=== PATIENT | female | born 1940 | race Caucasian/White ===

== ENCOUNTER 2022-11-03 12:49 | Outpatient (REF) | payer MEDICARE, SELFPAY ==
[2022-11-03 14:18] LABS: Anion Gap 12 (12-20); Blood Urea Nitrogen 25 mg/dL (9-16); Calcium 10.1 mg/dL (8.4-10.2); Carbon Dioxide 24 mmol/L (22-29); Chloride 108 mmol/L (96-108); Estimated Glomerular Filt Rate > 60; Glucose Random 208 mg/dL (60-115); Potassium 4.5 mmol/L (3.3-5.1); Sodium 139 mmol/L (135-145)
[2022-11-03 14:47] LABS: T4 Thyroxine 8.2 ug/dL (4.5-12.0); Thyroid Stimulating Hormone 2.22 uIU/mL (0.32-4.0); Vitamin B12 851 pg/mL (200-900)
[2022-11-10 16:08] LABS: Vitamin D 25-OH, D2 <4 ng/mL; Vitamin D 25-OH, D3 36 ng/mL; Vitamin D 25-OH, Total 36 ng/mL (30-100)
== END 2022-11-03 12:50 | disposition home or self-care (01) ==
LOC: HO.LAB 12:49
PROVIDERS: PCP Internal Medicine; Visit Provider Psychiatry & Neurology Neurology
DX: G31.84 Mild cognitive impairment of uncertain or unknown etiology (principal); E55.9 Vitamin D deficiency, unspecified
CPT/HCPCS: 36415; 80048; 82306; 82607; 82746; 84436; 84443

== ENCOUNTER 2025-03-07 13:25 | Outpatient (AMB) | payer MEDICARE, SELFPAY ==
--- OUTSIDE RECORDS SUMMARY | 2024-05-03 06:15 | XMS_ITS ---
Author Organization [facility] Address [address] [place] [address] Care Team Providers Care Structural Drafter Name Role Phone Shayla MEADOWS, Joaquin Mcclure Primary Care Provider Unav ailable Angle Del Angel Unavailable [phone] Encounters Encounter Location Date Provider Diagnosis [address] [phone] 05/03/2024 Angle Del Angel Plan Of Treatment Next Appt Details Provider Name:Angle Drake adams, 06/02/2025 11:15:00 AM, [address] [place] [address], [phone], Progress Notes * Kylee MONTIEL ADOB:[birth year] (84 yo F)Acc No.[id number]:05/03/2024 Progress Note Patient: Kylee HERNÁNDEZ Provider: Carrie Del Anegl DPM :1940 A ge:83 Y S ex:Female Date:05/03/2024 Address:[address] [place] [phone] Pcp:Joaquin Mcguire MD Subjective: * Chief Complaints: * * Medical History: Objective: * Vitals: Assessment: Plan: * Treatment: * Images: * The named appointment provid er may or may not be the originator of this progress note, and it is not deemed complete until electronically signed by the appointment provider. Sign off status: Pending * Provider: Carrie Del Angel DPM Date: 1 07/04/2023 Generated for Micah Gomes/Joaquin on: 04:15 PM EDT
--- OUTSIDE RECORDS SUMMARY | 2024-12-27 10:45 | XMS_ITS ---
Author Organization [facility] Address [address] [place] [address] Care Team Providers Care Pourer Crane Ladle Name Role Phone Shayla MEADOWS, Joaquin Mcclure Primary Care Provider Unav ailable Angle Del Angel Unavailable [phone] Encounters Encounter Location Date Provider Diagnosis [address] [address] 12/27/2024 Angle Del Angel Plan Of Treatment Next Appt Details Provider Name:Angle Drake adams, 06/02/2025 11:15:00 AM, [address] [place] [address], [phone], Progress Notes * Kylee MONTIEL ADOB:[birth year] (84 yo F)Acc No.[id number]:12/27/2024 Progress Note Patient: Kylee HERNÁNDEZ Provider: Carrie Del Angel DPM :1940 A ge:84 Y S ex:Female Date:12/27/2024 Address:[address] [place] [phone] Pcp:Joaquin Mcguire MD Subjective: * Chief Complaints: * * Medical History: Objective: * Vitals: Assessment: Plan: * Treatment: * Images: * The named appointment provid er may or may not be the originator of this progress note, and it is not deemed complete until electronically signed by the appointment provider. Sign off status: Pending * Provider: Carrie Del Angel DPM Date: 0 12/27/2024 Generated for Micah Gomes/Joaquin on: 1 04:15 PM EDT
--- OUTSIDE RECORDS SUMMARY | 2025-02-17 09:15 | XMS_ITS ---
Author Organization [facility] Address [address] [place] [address] Care Team Providers Care Business Development Coordinator Name Role Phone Shayla MEADOWS, Joaquin Mcclure Primary Care Provider Unav ailable Angle Del Angel Unavailable [phone] Encounters Encounter Location Date Provider Diagnosis [address] [address] 02/17/2025 Angle Del Agnel Plan Of Treatment Next Appt Details Provider Name:Angle Drake adams, 06/02/2025 11:15:00 AM, [address] [place] [address], [phone], Progress Notes * Kylee MONTIEL ADOB:[birth year] (84 yo F)Acc No.[id number]:02/17/2025 Progress Note Patient: Kylee HERNÁNDEZ Provider: Carrie Del Angel DPM :1940 A ge:84 Y S ex:Female Date:02/17/2025 Address:[address] [place] [phone] Pcp:Joaquin Mcguire MD Subjective: * Chief Complaints: * * Medical History: Objective: * Vitals: Assessment: Plan: * Treatment: * Images: * The named appointment provid er may or may not be the originator of this progress note, and it is not deemed complete until electronically signed by the appointment provider. Sign off status: Pending * Provider: Carrie Del Angel DPM Date: 0 02/17/2025 Generated for Micah galindo/Sherman/Joaquin on: 04:16 PM EDT
--- OUTSIDE RECORDS SUMMARY | 2025-03-03 09:30 | XMS_ITS ---
[facility] Address [address] [place] [address] Care Team Providers Care Environmental Compliance Manager Name Role Phone Shayla MEADOWS, Joaquin Mcclure Primary Care Provider Unav ailable Angle Del Angel Unavailable [phone] Allergies No Known Allergies REASON FOR VISIT At Risk Footcare Medications Medication SIG (Take, Route, Frequency, Duration) Notes Start Date End Date Status Omeprazole 20 mg Not -Taking Cilostazol 100 MG Orally No t-Taking Ranitidine Not-Takin g Aleve prn Not-Taking Vitamin D Active Januvia Not-Taking Econazole Nitrate 1 % 1 application to affected area Externally Once a day; Duration: 30 days PRN 05/30/2016 Not-Taking Loprox 0.77 % 1 application to affected area Externally Twice a day PRN Not-Takin g Sertraline HCl 50 MG 1 tablet Orally Onc e a day Not-Taking Lisinopril 2.5 mg Ac tive Aspirin 81 MG 1 tablet Orally Once a day; Duration: 30 day(s) Active Atorvastatin Calcium 20 MG 1 tablet Orally Once a day Active Alendronate Sodium 70 mg once a week Active Voltaren 1 % as directed Externally Active Social History Tobacco Use: Social History Observation Description Date Details (start date - stop date) Never Smoker NA - NA Tobacco use other than smoking: Question Answer Notes Are you an other tobacco user? No Tobacco Control (Standard) Question Answer Notes Tobacco use: Nonsmoker Additional Findings: Tobacco non-user Current no nsmoker AUDIT-C (Standard) Question Answer Notes Did you have a drink containing alcohol in the p ast year? No Points 0 Interpretation Negative Vital Signs Height 4 ft 11 in in 03/03/2025 Weight 140 lbs 03/03/2025 BMI 28.27 kg/m2 03/03/2025 Procedures Procedure Date Ordered Date Performed Result Body Sit e 43324-OOJAGCN NAIL, 6 OR MORE 03/03/2025 N/A 95277-LLBZ SKIN LESIONS, 2 TO 4 03/03/2025 N/A Encounters Encounter Location Date Provider Diagnosis [facility] [address] [place] [phone] 03/03/2025 Angle Del Angel Type 2 diabetes mellitus with diabetic polyneuropathy E11.42 and Tinea unguium B35.1 Assessments Encounter Date Diagnosis (ICD Code) Assessment Notes Treatment Notes Treatment Clinical Notes Section Notes 03/03/2025 Type 2 diabetes mellitus with diabetic polyneuropathy (ICD-10 - E11.42) 03/03/2025 Tinea unguium (ICD-10 - B35.1) Plan Of Treatment Pending Test Test Name Order Date 99530-[id number] NAIL, 6 OR MORE 03/03/2025 08560-UBFX SKIN LESIONS, 2 TO 4 03/03/20 25 Next Appt Details Follow Up: 3 Months, Reason: Provider Name:Angle adams, 06/02/2025 11:15:00 AM, [address] [place] [address], [place], [phone], Procedure Notes * Category Sub-Category Detail Notes Debride Nail 6-10 Nail debridement Due to the cl inical pathology outlined in the exam findings, performance of this nail treatment is medically necessary as its management by an unskilled/untrained nonprofessional would put this patients foot and overall health at risk. Therefore, debridement to affected nail(s), as described in exam ( TA, T1, T2, T3, T4, T5, T6, T7, T8, T9, ), was performed exclusively by the physician of record to reduce/remove overall nail length, girth, thickness, subungual debris, and necrotic tissue, by manual and/or electrical means through the use of a nail nipper and/or dremel-type jig grinder, to a more viable healthy nail plate or bed tissue 6-10 nails in total. Silver nitrate was used for any petechial bleeding as necessary. Definitive antifungal treatment options, both pharmaceutical and surgical, have been reviewed and discussed with the patient. The patient solely prefers the use of intermittent/as needed professional debridement services for their nail condition and understands the need for additional periodic treatments to maintain effectiveness in symptomatic relief - 13622 Keratoma Treatment Parring or Cutting o f Benign Hyperkeratotic Lesion(s) (-56) 2-4 Lesions - Due to the at risk nature of the patients medical condition as documented in the exam findings, performance of this keratoderma treatment is medically necessary as its management by an unskilled/untrained nonprofessional would put this patients foot and overall health at risk. Therefore, the benign hyperkeratotic lesions, (2) in total, locations as stated and described in the exam ( plantar heels B/L), were pared, and/or cut utilizing a sterile 15 blade, tissue nippers, and/or power dremel instrumentation by the physician of record - 97924 Progress Notes * Kylee MONTIEL ADOB:[birth year] (84 yo F)Acc No.[id number]:03/03/2025 Progress Note Patient: Kylee HERNÁNDEZ Provider: Carrie Del Angel DPM :1940 A ge:84 Y S ex:Female Date:03/03/2025 Address:[address] [place], [place] [phone] Pcp:Joaquin Mcguire MD Subjective: * Chief Complaints: * A t Risk Footcare * HPI: A t Risk footcare: Pt States Last PCP Visit: D ate 0 11/17/2024 * ROS: G eneral/Constitutional: Nausea d enies. V omiting d enies. H joselin Thirst d enies. L oss appetite d enies. C hills d enies. F atigue d enies.?Fever d enies. N ight Sweats d enies. U nexplained weight loss d enies. O phthalmologic: Blurred vision d enies. R ed eye d enies. ? H EENTM: Dentures d enies. D izziness a dmits. G lasses/contacts a dmits. R etinopathy d enies. B lurred/double vision d enies. T MJ?denies. D ischarge/drainage d enies. I mplants d enies. H briana of hearing denies. D ifficulty chewing/swallowing/speaking d enies. N ose bleeds a dmits.?Sore mouth d enies. S wollen glands d enies. R espiratory: On Oxygen d enies. P neumonia/pleurisy d enies.?Bronchitis d enies. E mphysema d enies. C oughing d enies. C ough blood?denies. S hortness of breath d enies. W heezing d enies. C ardiovascular: Pacemaker d enies. M HEAD PACKAGER d enies. W PW d enies. C HF d enies. H eart attack d enies. S eptal defect d enies. R apid beat d enies. C hest pain d enies. A trial Fib. d enies. M urmur/Palpitations d enies. G astrointestinal: Hemorrhoids d enies. S tomach/Abdominal pain d enies. D ark blood stool d enies. I rritable bowel d enies. C onstipation d enies. D iarrhea d enies. V omiting d enies. H ematology: Swelling d enies. B ruising d enies. B leeding problem d enies. G enitourinary: Blood urine d enies. F requent/Painfu/urination/bladder control d enies. K idney stones d enies. I nfection (UTI) d enies. N ephropathy d enies. M usculoskeletal: Hammertoes d enies. B unions d enies. S coliosis/kyphosis d enies. M uscle cramps / walking d enies. G eneralized aches and pains?denies. W eakness d enies. I nteg.: Collado d enies. S cars d enies. C orns/calluses?denies. I ngrown nails d enies. P ainful nails d enies. R ashes d enies. N eurologic: Difficulty sleeping d enies. B ipolar d enies. B rain disorder d enies. B alance trouble d enies. C onfusion d enies. F ainting/blackouts d enies. H eadache d enies. T remors d enies. * Medical History: * Surgical History: a ppendectomy 1949breast surgery 2003hysterectomy 1970 * Hospitalization/Major Diagno stic Procedure: s igmoidoscopy 06/2013[facility] High blood pressure 03/2019fell, fractured clavicle and 2 ribs 12/2023 * Family History: M other: , poor circulation, diagnosed with Unspecified cerebral artery occlusion with cerebral infarction, Unspecified essential hypertension. F ather: . D aughter(s): alive. S on(s): alive. S pouse: . 2 son(s) , 2 daughter(s) . . * Social History: T obacco Use: T obacco use other than smoking A re you an other tobacco user? N o Tobacco Control (Standard) T obacco use: N onsmoker A dditional Findings: Tobacco non-user C urrent nonsmoker D rugs/Alcohol: D rugs H ave you used drugs other than those for medical reasons in the past 12 months? N o M iscellaneous: C affeine: yes, 1-2 cups per day. Children: yes, 4. Exercise: no. Marital status: . Occupation: retired. D rug/Alcohol: A GARY-C (Standard) D id you have a drink containing alcohol in the past year? N o P oints 0 I nterpretation N egative * Medications: T akingVoltaren 1 % Gel as directed Externally Alendronate Sodium 70 mg once a week Atorvastatin Calcium 20 MG Tablet 1 tablet Orally Once a day Aspirin 81 MG Tablet Chewable 1 tablet Orally Once a day Lisinopril 2.5 mg Vitamin D Taking Voltaren 1 % Gel as directed Externally Taking Alendronate Sodium 70 mg once a week Taking Atorvastatin Calcium 20 MG Tablet 1 tablet Orally Once a day Taking Aspirin 81 MG Tablet Chewable 1 tablet Orally Once a day Taking Lisinopril 2.5 mg Taking Vitamin D Not-Taking/PRNEconazole Nitrate 1 % Cream 1 application to affected area Externally Once a day , Notes to Pharmacist: PRNJanuvia Sertraline HCl 50 MG Tablet 1 tablet Orally Once a day Loprox 0.77 % Gel 1 application to affected area Externally Twice a day , Notes to Pharmacist: John , Notes to Pharmacist: prnRanitidine Cilostazol 100 MG Tablet Orally Omeprazole 20 mg Medication List reviewed and reconciled with the patientNot-Taking/PRN Econazole Nitrate 1 % Cream 1 application to affected area Externally Once a day , Notes to Pharmacist: PRNNot-Taking/PRN Januvia Not- Taking/PRN Sertraline HCl 50 MG Tablet 1 tablet Orally Once a day Not-Taking/PRN Loprox 0.77 % Gel 1 application to affected area Externally Twice a day , Notes to Pharmacist: PRNNot-Taking/PRN Aleve , Notes to Pharmacist: prnNot-Taking/PRN Ranitidine Not-Taking/PRN Cilostazol 100 MG Tablet Orally Not-Taking/PRN Omeprazole 20 mg Medication List reviewed and reconciled with the patient * Allergies: N .K.D.A.yes[Allergies Verified] Objective: * Vitals: H t: 4 ft 11 in, Wt: 140, BMI: 28.27, Shoe size: 7, BS: did not test, Wt-k.5 kg. * P ast Orders: L ab:HEMOGLOBIN A1C (GLYCOHEMOGLOBIN) (Order Date - 10/03/2024) (Collection Date & Time - 10/04/2024 01:38 PM) Value Reference Range HEMOGLOBIN A1C % (HH) 7.1 * Examination: O phthalmology Referral: DIABETES EYE EXAM P rocedure Performed: N o N eurological: SENSORY: Neurological exam demonstrates, reduced light touch sensation, reduced sharp/dull pin prick discrimination , B/L, 5.07 monofilament test performed at plantar aspects of 5 varied sites per foot shows sensation, reduced , B/L. N ails: NAILS are: E longated, overgrown, dystrophic, lytic, greater than 3mm thick, discolored and friable with crumbly malodorous subungual debris, with dull to no pain on palpation due to neuropathy, TA, T1, T2, T3, T4, T5, T6, T7, T8, T9. D ermatologic: SKIN FINDINGS: S kin exam reveals Keratotic lesion(s) located at plantar heels B/L. V ascular: DP PULSES (B): 1 /4, B/L. PT PULSES (B): 0 /4, B/L. CAPILLARY FILL TIME: 3 secs. per digit, b/l. EDEMA (C): 1 /4, B/L, Feet, Ankle(s), Leg(s). CLAUDICATION (C): n egative, b/l . REST PAIN: n egative. CLUBBING: a bsent. O rthopedic: MUSCLE STRENGTH: 5 /5 all groups in a symmetrical fashion, B/L. G eneral Examination: GENERAL APPEARANCE: R ashleys a pleasant, alert, well nourished, well-developed, well hydrated individual, who demonstrates proper attention to hygiene/body habitus, and is in no acute distress, Pt serves as own historian for office visit today. ORIENTED: p erson, place, and time. Assessment: * Assessment: 1. T ype 2 diabetes mellitus with diabetic polyneuropathy - E11.42 (Primary) 2 . T inea unguium - B35.1 Plan: * Treatment: * Procedures: D ebride Nail 6-10: Nail debridement D ue to the clinical pathology outlined in the exam findings, performance of this nail treatment is medically necessary as its management by an unskilled/untrained nonprofessional would put this patients foot and overall health at risk. Therefore, debridement to affected nail(s), as described in exam ( TA, T1, T2, T3, T4, T5, T6, T7, T8, T9, ), was performed exclusively by the physician of record to reduce/remove overall nail length, girth, thickness, subungual debris, and necrotic tissue, by manual and/or electrical means through the use of a nail nipper and/or dremel- type jig grinder, to a more viable healthy nail plate or bed tissue 6-10 nails in total. Silver nitrate was used for any petechial bleeding as necessary. Definitive antifungal treatment options, both pharmaceutical and surgical, have been reviewed and discussed with the patient. The patient solely prefers the use of intermittent/as needed professional debridement services for their nail condition and understands the need for additional periodic treatments to maintain effectiveness in symptomatic relief - 61022. K eratoma Treatment: Parring or Cutting of Benign Hyperkeratotic Lesion(s) ( -56) 2-4 Lesions - Due to the at risk nature of the patients medical condition as documented in the exam findings, performance of this keratoderma treatment is medically necessary as its management by an unskilled/untrained nonprofessional would put this patients foot and overall health at risk. Therefore, the benign hyperkeratotic lesions, (2) in total, locations as stated and described in the exam ( plantar heels B/L), were pared, and/or cut utilizing a sterile 15 blade, tissue nippers, and/or power dremel instrumentation by the physician of record - 47159. * Procedure Codes: 1 1721 DEBRIDE NAIL, 6 OR MORE, Modifiers: XS 20046 TRIM SKIN LESIONS, 2 TO 4, Modifiers: XS * Follow Up: 3 Months * Images: * Sign off status: Completed true * Provider: Carrie Del Angel DPM Date: Generated for Micah galindo/Sherman/Joaquin on: 04:15 PM EDT History and Physical Notes * HPI (History of Present Illness) Category Sub-Category Detail Notes Category Not es At Risk footcare Pt States Last PCP Visit: Date: Examination Category Sub-Category Detail Notes Category Not es Neurological SENSORY: Neurological exa m demonstrates, reduced light touch sensation, reduced sharp/dull pin prick discrimination , B/L, 5.07 monofilament test performed at plantar aspects of 5 varied sites per foot shows sensation, reduced , B/L Dermatologic SKIN FINDINGS: Skin exam reveal s Keratotic lesion(s) located at plantar heels B/L Orthopedic MUSCLE STRENGTH: 5/5 all groups in a symmetrical fashion, B/L General Examination GENERAL APPEARANCE: Reveals a pleasant, alert, well nourished, well-developed, well hydrated individual, who demonstrates proper attention to hygiene/body habitus, and is in no acute distress, Pt serves as own historian for office visit today ORIENTED: person, place, and t keyon Ophthalmology Referral DIABETES EYE EXAM Procedure Perform ed:: No Vascular DP PULSES (B): 1/4, B/L PT PULSES (B): 0/4, B/L CAPILLARY FILL TIME: 3 secs. per digit, b/l EDEMA (C): 1/4, B/L, Feet, Ankl e(s), Leg(s) CLUBBING: absent CLAUDICATION (C): negative, b/l REST PAIN: negative Nails NAILS are: Elongated, overg rown, dystrophic, lytic, greater than 3mm thick, discolored and friable with crumbly malodorous subungual debris, with dull to no pain on palpation due to neuropathy, TA, T1, T2, T3, T4, T5, T6, T7, T8, T9
--- NOTE | 2025-03-07 13:27 | MHC.OFFVIS ---
Intake Visit Reasons: 6 mo fu Accompanied by: Daughter Allergies No Known Allergies Allergy (Verified 03/07/25 13:31) Medication List - Last Reconciled 03/07/25 by Sonia Ann CNP atorvastatin 40 mg PO DAILY cholecalciferol (vitamin D3) 25 mcg PO DAILY donepezil 10 mg PO BEDTIME lisinopril 10 mg PO DAILY metformin ER 500 mg PO BID pantoprazole 40 mg PO BID HPI Comments Details: Short term memory declining some, more forgetful. Sometimes forgets if she ate or if she took medications. Has medications in pill box. Living with her son. She was still doing some cooking, cleaning, and still managing her own finances without issues. No falls. Sleep was not so good, has trouble falling asleep. Mood was okay.? Lost her balance trying to hang up towel and fell at the end of 12/2023, fx clavicle. Was hospitalized for few days and discharged to rehab. She has had memory problems starting in 2020 with short-term memory problems, difficulty recalling names, and words searching. She has an 11th grade education. 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 She has 4 children, Kala, Missy, José Miguel, and Art. She has 6 grandchildren and 3 great-grandchildren. [facility] Medical History (Updated 03/07/25 @ 13:32 by Sonia Ann CNP) Depression Osteopenia Hyperlipidemia Diabetes Hypertension Review of Systems Const Denies chills, Denies daytime sleepiness, Denies difficulty sleeping, Denies fatigue, Denies fever(s), Denies frequent falls, Denies headache(s), Denies increased appetite, Denies poor appetite, Denies snoring, Denies weakness, Denies weight gain and Denies weight loss Eyes Denies loss of vision ENT Denies vertigo, Denies dizziness, Denies headache(s) and Reports neck pain Card Denies chest pain at rest, Denies chest pain with activity, Denies syncope, Denies leg edema, Denies palpitations, Denies dyspnea and Denies dyspnea on exertion Resp Denies cough, Denies dyspnea, Denies dyspnea on exertion and Denies snoring GI Denies abdominal pain, Denies constipation, Denies heartburn, Denies diarrhea and Denies nausea Denies urinary frequency, Denies urinary incontinence and Denies urinary urgency Musc Denies abnormal gait, Denies back pain, Denies myalgias, Reports arthralgias, Reports neck pain, Denies numbness and Denies tingling Neuro Denies abnormal gait, Denies vertigo, Denies dizziness, Denies syncope, Denies frequent falls, Denies headache(s), Denies lack of coordination, Denies loss of vision, Reports memory loss, Denies numbness, Denies Other visual disturbances, Denies restless legs, Denies seizure-like activity, Denies tingling, Denies paresthesias, Denies tremor(s) and Denies weakness Psych Denies anxiety, Denies depression, Denies auditory hallucinations, Reports memory loss and Denies visual hallucinations Endo Denies fatigue and Denies palpitations Physical Exam Const Other: General Appearance:? normal, in no acute distress. Heart:? S1, S2 normal, no murmurs. Lungs:? clear anteriorly and posteriorly. Musculoskeletal:? normal. Extremities:? no edema. Psych:? alert, as below. Neuro Other: Abnormal Neurological Findings:?MMSE 25/30.? Mental Status: alert, as below. Cranial Nerves: Pupils are equal, round, and reactive to light. External ocular muscles are intact. Visual shane are full, no ptosis. Face is symmetrical, no facial weakness or droop. Facial sensations are normal. Tongue protrudes in midline. Palate elevates symmetrically. Shoulder shrugging is normal Motor Examination: Normal muscle tone, bulk and strength. No atrophy or fasciculations. No drift of the extended upper extremities. DTR 2+. Plantars are flexor. Sensory Exam: Normal light touch, temperature, pinprick, vibration, and joint-position sensations. Rhomberg sign is absent. Coordination: No ataxia. No titubation. Gait Exam: Within normal limits. Cerebellar Signs: [id number] is okay. Extrapyramidal System: No tremor, rigidity with normal facial expressions. No bradykinesia. No bradyphrenia. Normal arm swing and posture. No propulsion or retropulsion. Speech: Normal. MMSE Level of Consciousness: Alert. Orientation: Knows correct year, month, date (with some difficulty), day and season. Knows correct city (with some difficulty), county and state. Knows correct location and floor. Registration: Able to register 3 objects. Attention: Serial 7's performed accurately to 86. Recall: Able to recall 2 out of 3 objects. Language: Normal spontaneous speech, fluency, repetition, naming, comprehension, reading, and writing. Total Score: 25/30. Results Reviewed Results Reviewed: 11/11/22 EEG- WNL labs normal Assessment & Plan Assessment & Plan (1) MCI (mild cognitive impairment): Code(s): G31.84 - Mild cognitive impairment of uncertain or unknown etiology Category: Medical Plan: Continue donepezil 10mg 1 tablet at bedtime. Start memantine 5mg 1 tablet twice a day, use/side effects reviewed. Stay physically and socially active. Medications: New memantine (Namenda) 5 mg PO BID 60 tabs 2RF 30 days donepezil 10 mg PO BEDTIME 90 tabs 1RF 90 days Coding Level of Care Code Est Pt Level 4 (87755) Diagnoses MCI (mild cognitive impairment) G31.84
--- OUTSIDE RECORDS SUMMARY | 2025-03-07 16:15 | XMS_ITS | Clinical Summary ---
Author Organization [facility] Address [address] [place] [address] Phone Care Team Providers Care Desktop Publishing Operator Name Role Phone Joaquin Mcguire MD Primary Care Provider [phone] Allergies No known active allergies Medications alendronate (FOSAMAX) 70 mg tablet Take 1 tablet (70 mg total) by mouth every 7 (seven) days. Active triamcinolone (KENALOG) 0.1 % cream Bi affected area Active DICLOFENAC SODIUM TOP Diclofenac Sodium 1 % Gel--- APPLY 4 G TO EACH AFFECTED AREA UP TO 4 TIMES DAILY. MAX 16GRAM/DAY PER JOIN. MAX 32 GRAMS/DAY/BODY Active lancets lancets Use once daily to check blood sugar Active nystatin-triamci nolone (MYCOLOG II) cream Apply topically 2 (two) times a day. Active blood-glucose meter misc use qd as directed - Does not apply Active aspirin 81 mg EC tablet Take 1 tablet (81 mg total) by mouth 1 (one) time each day. Active metFORMIN XR (GLUCOPHAGE-XR) 500 mg 24 hr tablet Take 1 tablet (500 mg total) by mouth 2 (two) times a day. Take one tablet by mouth twice a day with meals. 180 each 3 4 03/26/20 25 Active pantoprazole (PROTONIX) 40 mg EC tablet Take 1 tablet (40 mg total) by mouth 2 (two) times a day. 180 each 3 4 03/26/20 25 Active cholecalciferol (VITAMIN D-3) 25 mcg (1,000 unit) tablet TAKE 1 TABLET BY MOUTH EVERY DAY 90 tablet 1 5 Active lisinopriL (PRINIVIL,ZESTRI L) 10 mg tablet TAKE 1 TABLET BY MOUTH EVERY DAY 90 tablet 1 5 Active OneTouch Ultra Test test strip CHECK BLOOD SUGAR ONCE A DAY 100 strip 1 5 Active atorvastatin (LIPITOR) 40 mg tabletIndication s:Encounter for immunization,Pur e hypercholesterol emia, unspecified TAKE 1 TABLET BY MOUTH EVERY DAY 90 tablet 1 5 Active Active Problems Problem Noted Date Diagnosed Date Pure hypercholesterolemia 03/03/2024 Breast cancer ([facility] V24, 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 V24, [facility] V28) 03/03/2024 Assessment & Plan (07/04/2024 12:25 PM EST): Her diabetes is well-controlled based on last hemoglobin A1c. She is getting some fasting blood sugars in the 160-190 territory. Will recheck hemoglobin A1c. Patient has not had any episodes of hypoglycemia. For now she will continue on the Januvia as well as the metformin. Orders: Hemoglobin A1c; Future Comprehensive metabolic panel; Future Type II or unspecified type diabetes mellitus with ophthalmic manifestations, not stated as uncontrolled(250.50) ([facility] V24, 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 V28) (Primary Dx); Microalbuminuria; Pure hypercholesterolemia; Type II or unspecified type diabetes mellitus with ophthalmic manifestations, not stated as uncontrolled(250.50) ([facility] V24, [facility] V28); Memory deficit; Patient has healthcare proxy from Last 3 Months Immunizations Immunization Administration Dates Next Due Influenza Quadravalent, 0.5m l (Fluzone High-dose) 65yo and older 03/08/2019 Influenza trivalent, 0.5mL ( Fluzone High-dose) 65yo and older 02/03/2023,02/06/2022,03/01/2021,03/08,03/17/2018,03/01/2017 Influenza trivalent, with pr eservative (Fluzone; Afluria) 6mo and older 03/28/2016,03/26/2015,03/22/2014,02/09,02/10/2012,02/17/2011,02/13/2010 ,03/30/2007 Influenza, Unspecified 03/01/2019 Pfizer (age 5-11) Bivalent, COVID-19 03/25/2022 Pneumococcal conjugate 13 va lent (Prevnar 13, PCV13) 2mo and older 03/28/2016 Pneumococcal conjugate 20 va lent (Prevnar 20, PCV 20) 2mo and older 02/25/2023 Pneumococcal polysaccharide 23 valent (Pneumovax 23) 2yo and older 03/30/2007 Td, Unspecified 05/23/2003 Tdap Tetanus diptheria acell ular pertussis (Boostrix; Adacel) 7yo and older 07/20/2019 Surgical History Surgery Date Site/Laterality Comments HYSTERECTOMY 1970 PROCEDURE: HISTORICAL TOTAL HYSTERECTOMY WITH BSO; COMMENT: bleeding CARPAL TUNNEL RELEASE 1990 PROCEDURE: OK NEUROPLASTY &/TRANSPOS MEDIAN NRV CARPAL TUNNE; COMMENT: right FLEXIBLE SIGMOIDOSCOPY 06/02/2008 PROCEDURE: OK SIGMOIDOSCOPY FLX DX W/COLLJ SPEC BR/WA IF PFRMD; COMMENT: Negative/incomplete colonoscopy to the splenic flexure. FLEXIBLE SIGMOIDOSCOPY 2013 PROCEDURE: OK SIGMOIDOSCOPY FLX DX W/COLLJ SPEC BR/WA IF PFRMD; COMMENT: normal to 40 cm. BREAST BIOPSY 2003 PROCEDURE: BX BREAST; PERC NEEDLE CORE W/IMAG GUID; COMMENT: RT. BREAST-CA BREAST BIOPSY PROCEDURE: OK BX BREAST W/DEVICE 1ST LESION ULTRASOUND GUID; COMMENT: LT. BREAST -BENIGN-FELT STRANDLIKE MASS BREAST SURGERY 2004 Right PROCEDURE: OK UNLISTED PROCEDURE BREAST; COMMENT: RT. BREAST LUMP. W RT Medical History Medical History Date Comments Other abnormal blood chemistry 04/07/2006 D X:Other abnormal blood chemistry Pure hypercholesterolemia 06/17/2005 DX:Pur e hypercholesterolemia Special screening for malign ant neoplasms, colon 06/02/2008 DX:Special screening for mal ignant neoplasms, colon; COMMENT: Negative/incomplete colonoscopy to the splenic flexure 06/02/2008. Consider flexible sigmoidoscopy 2013. Microalbuminuria 01/20/2014 DX:Microalbumin uria Breast cancer (CMS/HCC V24, CMS/HCC V28) 11/30/2007 DX:Breast cancer (HCC); COMM ENT: 2004:right lumpectmy followed by RT Family History Medical History Relation Name Comments Diabetes Mother leg amputation Stroke Mother at age 64 Colon cancer Neg Hx Ovarian cancer Neg Hx Relation Name Status Comments Mother Social History Tobacco Use Types Packs/Day Years Used Date Smoking Tobacco: Former Cigarettes 0.3 7 0 05/25/1958 - 05/25/1965 Smokeless Tobacco: Former Alcohol Use Standard Drinks/Week Comments Yes 0 (1 standard drink = 0.6 oz pur e alcohol) Comments No Sex and Gender Information Value Date Recorded Sex Assigned at Not on file Legal Sex Female 2:16 PM EST Gender Identity Not on file Sexual Orientation Not on file Obstetrics History Para Term AB IAB SAB Ectopic Multiple Livin g Live Births 4 4 4 4 Date Outcome GA Total Labor Labor/2nd/3rd Weight Sex Type Anes PTL Emma A1 A5 Name Clin Term Term Term Term Last Filed Vital Signs Vital Sign Reading Time Taken Comments Blood Pressure 136/78 01/18/2025 8:35 AM EDT Pulse 77 01/18/2025 8:35 AM EDT Temperature 36.6 C (97.9 F) 01/18/2025 8:35 AM EDT Respiratory Rate 18 01/18/2025 8:35 AM EDT Oxygen Saturation 92% 01/18/2025 8:35 AM EDT Inhaled Oxygen Concentration - - Weight 62.1 kg (137 lb) 01/18/2025 8:35 AM EDT Height 147.3 cm (4' 10 ) 01/18/2025 8:35 AM EDT Body Mass Index 28.63 01/18/2025 8:35 AM EDT Plan of Treatment Upcoming Encounters Date Type Department Care Team (Late st Contact Info) Description 04/25/2025 12:00 PM EST Office Visit Adult Medicine [facility] [address] [place] [address] Joaquin Mcguire MD [address] [place] [address] 05/10/2025 9:15 AM EST Ancillary Procedure [facility] [address] [facility] [address] [place] [phone] 06/28/2025 11:30 AM EST Office Visit Vascular Surgery - [place] [address] [place] [phone] rTi Grant MD [address] [place] [phone] Health Maintenance Due Date Last Done Comments Colorectal Cancer Screening: Colonoscopy 1942 Diabetes: Annual Retina Eye Exam 1952 Zoster Vaccines (1 of 2) 1961 RSV Immunization Adult Patients (1 - 1-dose 75+ series) 2017 Medicare Annual Wellness Visit 05/03/2022 Social Influencers of Health Screening 05/03/2022 Depression Screening 05/25/2024 Diabetes: Annual Urine Albumin-Creatinine Ratio (uACR) 11/12/2024 11/13/2023 Diabetes: Annual Foot Exam 01/07/2025 01/08/2024 COVID-19 Vaccine ( season) 2025 03/21/2024, 03/02/2023, 03/25/2022, Additional history exists Influenza Vaccine (#1) 2025 , 02/03/2023, 02/06/2022, Additional history exists Falls Risk Assessment 03/02/2025 03/02/2024 Diabetes: Blood Sugar Control Test (HGBA1C) 04/05/2025 10/03/2024, 07/04/2024, 03/31/2024, Additional history exists Diabetes: Annual GFR (Glomerular Filtration Rate) 10/03/2025 10/03/2024, 07/04/2024, 03/31/2024 Hypertension/CHF/CAD Annual BMP Blood Test 10/03/2025 10/03/2024, 07/04/2024, 03/31/2024 Cholesterol Screening (Lipid Panel) 05/01/2028 05/01/2023 DTaP,Tdap,and Td Vaccines (3 - Td or Tdap) 07/20/2029 07/20/2019, 05/23/2003 Osteoporosis Screening (Bone Density Screening) 06/18/2033 06/18/2023, 05/12/2017 Pneumococcal Vaccine: 50+ Years Completed 02/25/2023, 03/28/2016, 03/30/2007 HIB Vaccines Aged Out No longer eligi ble based on patient's age to complete this topic HPV Vaccines Aged Out No longer eligi ble based on patient's age to complete this topic Hepatitis A Vaccines Aged Out No long er eligible based on patient's age to complete this topic Hepatitis B Vaccines Aged Out No long er eligible based on patient's age to complete this topic IPV Vaccines Aged Out No longer eligi ble based on patient's age to complete this topic MMR Vaccines Aged Out No longer eligi ble based on patient's age to complete this topic Meningococcal ACWY Vaccine Aged Out N o longer eligible based on patient's age to complete this topic Meningococcal B Vaccine Aged Out No l onger eligible based on patient's age to complete this topic RSV Immunization Patients Under 20 months Aged Out No longer eligible based on patient's age to complete this topic Varicella Vaccines Aged Out No longer eligible based on patient's age to complete this topic Procedures Procedure Name Priority Date/Time Associated Diagnosis Comments COMPREHENSIVE METABOLIC PANEL Routine 10/03/2024 10:13 AM EDT 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 V24, 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 V24, [facility] V28) FALLS RISK ASSESSMENT Routine 03/02/2024 DIABETES FOOT EXAM Routine 01/08/2024 URINE ALBUMIN CREATININE RATIO Routine 11/13/2023 DXA BONE DENSITY STUDY 1+ SITS AXIAL SKEL Routine 06/18/2023 10:18 AM EST Other specified disorders of bone density and structure, unspecified site LIPID PANEL Routine 05/01/2023 from Last 3 Months or Most Recently Relevant to Health Maintenance Results * (ABNORMAL) Hemoglobin A1c (10/03/2024 10:13 AM EDT) Hemoglobin A1C 7.1(H) <6.5 % LAB CHEMISTRY METHOD 10/03/2024 10:16 PM EDT [facility] Mean Bld Glu Estim. 157 mg/dL LAB CHEMISTRY METHOD 10/03/2024 10:16 PM EDT [facility] Blood Venous blood specimen / Unknown Venipuncture / Unknown 10/03/2024 10:13 AM EDT 10/03/2024 10:13 AM EDT us Mariano HYMAN LAB BLOOD ORDERABLES Fin al Result [facility] [address] [place] [address], * (ABNORMAL) Comprehensive metabolic panel (10/03/2024 10:13 AM EDT) Sodium 144 133 - 145 mmol/L LAB CHEMISTRY METHOD 10/03/2024 2:55 PM EDT [facility] Potassium 4.2 3.5 - 5.5 mmol/L LAB CHEMISTRY METHOD [facility] Chloride 112(H) 96 - 110 mmol/L LAB CHEMISTRY METHOD 10/03/2024 2:55 PM [facility] CO2 26 21 - 32 mmol/L LAB CHEMISTRY METHOD 10/03/2024 2:55 PM [facility] Anion Gap 6 3 - 11 LAB CHEMISTRY METHOD 10/03/2024 2:55 PM [facility] Glucose 189(H) 70 - 100 mg/dL LAB CHEMISTRY METHOD 10/03/2024 2:55 PM [facility] BUN 30(H) 5 - 25 mg/dL LAB CHEMISTRY METHOD 10/03/2024 2:55 PM [facility] Creatinine 0.77 0.50 - 1.10 mg/dL LAB CHEMISTRY METHOD 10/03/2024 2:55 PM [facility] eGFR 77 >=60 mL/min/1. 73m2 LAB CHEMISTRY METHOD 10/03/2024 2:55 PM [facility] Comment:Calculation based on the Chronic Kidney Disease Epidemiology Collaboration (CKD-EPI) equation refit without adjustment for race. BUN/Creatinine Ratio 39.0 LAB CHEMISTRY METHOD 10/03/2024 2:55 PM [facility] Calcium 9.6 8.5 - 10.5 mg/dL LAB CHEMISTRY METHOD 10/03/2024 2:55 PM [facility] AST (SGOT) 24 10 - 42 unit/L LAB CHEMISTRY METHOD 10/03/2024 2:55 PM [facility] ALT (SGPT) 39 10 - 60 unit/L LAB CHEMISTRY METHOD 10/03/2024 2:55 PM [facility] Alkaline Phosphatase 100 42 - 121 unit/L LAB CHEMISTRY METHOD 10/03/2024 2:55 PM [facility] Total Protein 6.9 6.0 - 8.0 g/dL LAB CHEMISTRY METHOD 10/03/2024 2:55 PM EDT [facility] Albumin 3.9 3.2 - 5.0 g/dL LAB CHEMISTRY METHOD 10/03/2024 2:55 PM EDT [facility] Total Bilirubin 0.8 0.0 - 1.4 mg/dL LAB CHEMISTRY METHOD 10/03/2024 2:55 PM EDT [facility] Blood Venous blood specimen / Unknown Venipuncture / Unknown 10/03/2024 10:13 AM EDT 10/03/2024 10:13 AM EDT Mariano HYAMN LAB BLOOD ORDERABLES Fin al Result [facility] [address] [place] [address], [place] [phone] * Falls Risk Assessment (03/02/2024) [facility] Falls Risk Assessment abstracted Historical Provider MD HEALTH MAINTENANCE Final Result * Diabetes Foot Exam (01/08/2024) Pathologist [facility] Diabetes: Annual Foot Exam abstracted [facility] Provider MD HEALTH MAINTENANCE Final Result * Urine Albumin Creatinine Ratio (11/13/2023) Pathologist [facility] Urine Albumin Creatinine Ratio abstracted [facility] Provider MD HEALTH MAINTENANCE Final Result * DXA BONE DENSITY STUDY 1+ SITS AXIAL SKEL (06/18/2023 10:18 AM EST) Anatomical Region Laterality Modality Bone Densitometr y 03/25/2023 10:1 7 AM EDT Narrative 06/18/2023 3:45 PM EST BONE DENSITY Lumbar Spine T-score is -1.1 (SD relative to 20-29 y/o adult) Z-score is +1.6 (SD relative to age matched peers) This is consistent with osteopenia by criteria defined by the WHO. Left Hip T-score is -1.7 Z-score is +0.7 This is consistent with osteopenia by criteria defined by the WHO. Comparison exam(s): no statistically significant change in the bone density of the hip when compared to most recent bone density examination Confidence level is +/-95%. Impression: Based on the World Health Organization criteria, Kylee Montiel should be classified as having osteopenia. This patient has a 14% risk of major osteoporotic fracture and a 3.4% risk of hip fracture over the next 10 years. (World Health Organization Fracture Risk Assessment) [facility] Department of Internal Medicine recommends using National Osteoporosis Foundation (NOF) guidelines in treatment decisions related to osteoporosis. NOF guidelines suggest considering treatment for postmenopausal women and men aged 50 or older presenting with the following: History of hip or vertebral fracture. T-score less than or equal to -2.5 (DXA) at the femoral neck, total hip, or spine, after appropriate evaluation to exclude secondary causes. Low bone mass (T-score between -1.0 and -2.5 at the femoral neck or spine) AND a 10-year probability of a hip fracture greater than or equal to 3% OR a 10-year probability of a major osteoporosis-related fracture greater than or equal to 20% based on the [place]-adapted WHO algorithm Please note that all treatment decisions require clinical judgment and consideration of individual patient factors, including patient preferences, co-morbidities, previous drug use, risk factors not captured in the FRAX model (e.g., frailty, falls, vitamin D deficiency, increased bone turnover, interval significant decline in bone density) and possible under- or over-estimation of fracture risk by FRAX. Procedure Note Chaim Castellanos MD - 01/11/2024 BONE DENSITY Lumbar Spine T-score is -1.1 (SD relative to 20-29 y/o adult) Z-score is +1.6 (SD relative to age matched peers) This is consistent with osteopenia by criteria defined by the WHO. Left Hip T-score is -1.7 Z-score is +0.7 This is consistent with osteopenia by criteria defined by the WHO. Comparison exam(s): no statistically significant change in the bonedensity of the hip when compared to most recent bone density examination Confidence level is +/-95%. Impression: Based on the World Health Organization criteria, Kylee Montiel shouldbe classified as having osteopenia. This patient has a 14% risk of majorosteoporotic fracture and a 3.4% risk of hip fracture over the next 10years. (World Health Organization Fracture Risk Assessment) [facility] Department of Internal Medicine recommendsusing National Osteoporosis Foundation (NOF) guidelines in treatmentdecisions related to osteoporosis. NOF guidelines suggest consideringtreatment for postmenopausal women and men aged 50 or older presentingwith the following: History of hip or vertebral fracture. T-score less than or equal to -2.5 (DXA) at the femoral neck, total hip,or spine, after appropriate evaluation to exclude secondary causes. Low bone mass (T-score between -1.0 and -2.5 at the femoral neck or spine)AND a 10-year probability of a hip fracture greater than or equal to 3% ORa 10-year probability of a major osteoporosis-related fracture greaterthan or equal to 20% based on the [place]-adapted WHO algorithm Please note that all treatment decisions require clinical judgment andconsideration of individual patient factors, including patientpreferences, co-morbidities, previous drug use, risk factors not capturedin the FRAX model (e.g., frailty, falls, vitamin D deficiency, increasedbone turnover, interval significant decline in bone density) and possibleunder- or over-estimation of fracture risk by FRAX. Mariano HYMAN IMG DXA PROCEDURES Final Result * (ABNORMAL) Lipid panel (05/01/2023) LDL/HDL Ratio 6(A) 0 - 4 Triglycerides 331(A) 0 - 150 mg/dL Cholesterol 197 0 - 200 mg/dL HDL 34(A) >=40 mg/dL LDL Cholesterol 97 0 - 100 mg/dL Blood Venous blood specimen / Unknown Historical Provider LAB BLOOD ORDERABLES Noreen ricardo Result from Last 3 Months or Most Recently Relevant to Health Maintenance Insurance MEDICARE [facility] Advance Directives Documents on File Type Date Recorded Patient Technical Support Intern Expl anation Health Care Decision (hx) 01/21/2024 AD BAKER DIRECTIVE Health Care Decision (hx) 01/20/2024 HE ALTH CARE PROXY Health Care Decision (hx) 01/20/2024 HE ALTH CARE PROXY Health Care Decision (hx) 01/20/2024 HE ALTH CARE PROXY Health Care Decision (hx) 01/20/2024 HE ALTH CARE PROXY Health Care Decision (hx) 01/19/2024 AD BAKER DIRECTIVE Health Care Decision (hx) 01/19/2024 AD BAKER DIRECTIVE Health Care Decision (hx) 01/19/2024 AD BAKER DIRECTIVE Health Care Decision (hx) 01/19/2024 AD BAKER DIRECTIVE Health Care Decision (hx) 01/19/2024 AD BAKER DIRECTIVE Care Teams Desktop Publishing Operator Relationship Specialty Start Date End Date Joaquin Mcguire MD [address] [place] [address] PCP - General 04/22/00
--- OUTSIDE RECORDS SUMMARY | 2025-03-07 16:15 | XMS_ITS | Patient Health Record ---
Author Organization [facility] Address [address] [place] [address] Care Team Providers Care Project Internship Name Role Phone Shayla MEADOWS, Joaquin Mcclure Primary Care Provider Unav ailable Angle Del Angel Unavailable [phone] Ray Bernard Unavailable [phone] Allergies No Known Allergies Results Component Value Reference Range Notes HEMOGLOBIN A1C (GLYCOHEMOGLO BIN) Reviewed date:03/03/2025 01:38:54 PM Interpretation: Performing Lab: Notes/Report: HEMOGLOBIN A1C % (HH) 7.1 Reason For Referral No Information Medications Medication SIG (Take, Route, Frequency, Duration) Notes Start Date End Date Status Vitamin D Active Loprox 0.77 % 1 application to affected area Externally Twice a day PRN Not-Takin g Sertraline HCl 50 MG 1 tablet Orally Onc e a day Not-Taking Lisinopril 2.5 mg Ac tive Januvia Not-Taking Econazole Nitrate 1 % 1 application to affected area Externally Once a day; Duration: 30 days PRN 05/30/2016 Not-Taking Aspirin 81 MG 1 tablet Orally Once a day; Duration: 30 day(s) Active Atorvastatin Calcium 20 MG 1 tablet Orally Once a day Active Omeprazole 20 mg Not -Taking Alendronate Sodium 70 mg once a week Active Cilostazol 100 MG Orally No t-Taking Voltaren 1 % as directed Externally Active Ranitidine Not-Takin g Aleve prn Not-Taking Immunizations Vaccine Route Administration Date Status Comme nts Influenza Unknown 04/02/2015 Administered Influenza Unknown 04/02/2016 Administered Influenza Unknown 04/12/2017 Administered Influenza Unknown 04/23/2018 Administered Influenza Unknown 01/31/2019 Administered Social History Tobacco Use: Social History Observation [...] ast year? No Points 0 Interpretation Negative Section Notes: Flu Shot 04/02/15 A1C Unknown Pneumonia shot 2013 Flu Shot 04/02/15 A1C Unknown Pneumonia shot 2013 Flu Shot 04/02/15 A1C Unknown Pneumonia shot 2013 Problems Problem Type SNOMED Code ICD Code Onset Dates Problem Status W/U Status Risk Notes Problem Polyneuropathy due to type 2 diabetes mellitus (733968774) Type 2 diabetes mellitus with diabetic polyneuropathy (E11.42) Active confirmed Vital Signs Height 4 ft 11 in in 03/03/2025 Weight 140 lbs 03/03/2025 BMI 28.27 kg/m2 03/03/2025 Procedures Procedure Date Ordered Date Performed Result Body Sit e 97362-UKMWRIX NAIL, 6 OR MORE 09/27/2024 N/A 66511-WBCS SKIN LESIONS, 2 TO 4 09/27/2024 N/A 73334-KQAMCEZ NAIL, 6 OR MORE 03/03/2025 N/A 62054-DZAY SKIN LESIONS, 2 TO 4 03/03/2025 N/A Encounters Encounter Location Date Provider Diagnosis [address] [address] 09/27/2024 Angle Del Angel Type 2 diabetes mellitus with diabetic polyneuropathy E11.42 and [facility] B[facility] [address] 03/03/2025 Angle Del Angel Type 2 diabetes mellitus with diabetic polyneuropathy E11.42 and [facility]ium [facility]35.[facility] [address] [place] [address] 05/03/2024 Ray Bernard [facility] [address] 12/27/2024 Angle Del Angel Assessments Encounter Date Diagnosis (ICD Code) Assessment Notes Treatment Notes Treatment Clinical Notes Section Notes 09/27/2024 Type 2 diabetes mellitus with diabetic polyneuropathy (ICD-10 - E11.42) 09/27/2024 Tinea unguium (ICD-10 - B35.1) 03/03/2025 Type 2 diabetes mellitus with diabetic polyneuropathy (ICD-10 - E11.42) 03/03/2025 Tinea unguium (ICD-10 - B35.1) Plan Of Treatment Pending Test Test Name Order Date X ray : Foot, left 3V 01/28/2013 X ray : Foot, left 3V 01/21/2019 X ray : Foot, left 3V 02/11/2019 49367-XFDQFFD NAIL, 6 OR MORE 04/23/2018 91695-YYDRRNK NAIL, 6 OR MORE 02/27/2017 16120-PGRUIVY NAIL, 6 OR MORE 06/12/2017 48378-ADQUFHS NAIL, 6 OR MORE 09/15/2017 14817-HZYKFSU NAIL, 6 OR MORE 01/22/2018 56884-GDNXVPY NAIL, 6 OR MORE 03/23/2015 52735-CAXQBHQ NAIL, 6 OR MORE 2015 15752-XRUMHXM NAIL, 6 OR MORE 09/21/2015 18508-CJDXCZG NAIL, 6 OR MORE 12/14/2015 07036-QFNCBGT NAIL, 6 OR MORE 02/29/2016 27115-DOYBMDP NAIL, 6 OR MORE 05/30/2016 21433-HWDEMNN NAIL, 6 OR MORE 08/29/2016 61098-KVBXHMG NAIL, 6 OR MORE 11/28/2016 37268-CRTBQOJ NAIL, 6 OR MORE 04/29/2013 90458-JXUGIBL NAIL, 6 OR MORE 08/05/2013 79111-ZINMWLW NAIL, 6 OR MORE 11/04/2013 71925-CYYQUEQ NAIL, 6 OR MORE 02/03/2014 66567-JGRQTVG NAIL, 6 OR MORE 06/23/2014 17204-TWUNISP NAIL, 6 OR MORE 09/22/2014 48518-VVHRSLH NAIL, 6 OR MORE 12/22/2014 11227-TGAWBIR NAIL, 6 OR MORE 01/24/2011 37760-ZQHKRQR NAIL, 6 OR MORE 04/29/2011 75714-DEJHSCA NAIL, 6 OR MORE 08/05/2011 72794-ZYEOPIL NAIL, 6 OR MORE 11/04/2011 42319-AEBZYWD NAIL, 6 OR MORE 01/30/2012 07056-BXTPALE NAIL, 6 OR MORE 04/30/2012 14498-YWCPBOR NAIL, 6 OR MORE 07/30/2012 34685-ZPKFTCM NAIL, 6 OR MORE 10/29/2012 97016-AKELSUL NAIL, 6 OR MORE 01/28/2013 24779-IHKTOIT NAIL, 6 OR MORE 09/27/2024 39465-CNTYGVE NAIL, 6 OR MORE 03/03/2025 75794-Holotlzv Plate 01/28/2013 55332-Brccqypr Plate 10/29/2012 57822-Plynspdf Plate 07/30/2012 84422-Wlammlnx Plate 04/29/2011 57973-Ubeonijz Plate 04/30/2012 51361-Fzkjdmny Plate 01/30/2012 35068-Crzbbkro Plate 11/04/2011 08188-Hbgjtqye Plate 08/05/2011 09047-Hethzglz Plate 01/24/2011 52092-Ezcfcaog Plate 12/22/2014 99433-Tdrjdoul Plate 11/04/2013 16589-Aqkpnzdx Plate 09/22/2014 36096-Uhpuyqxc Plate 06/23/2014 44394-Xpmogniz Plate 02/03/2014 75317-Glxbgvrh Plate 04/29/2013 26558-Iusfnkyx Plate 03/23/2015 52223-Dolgrwri Plate Each Additional 06/2010 01119- Debride <25 sq cm 01/08/2015 54497 I&D ABSCESS- SIMPLE,SINGLE 015 29516-PCQX SKIN LESIONS, 2 TO 4 12/23/19 15 89504-YHJC SKIN LESIONS, 2 TO 4 06/23/19 15 56445-PMXD SKIN LESIONS, 2 TO 4 09/23/19 15 27164-RLJS SKIN LESIONS, 2 TO 4 08/06/19 14 84512-JRKZ SKIN LESIONS, 2 TO 4 02/04/20 14 18062-DSIF SKIN LESIONS, 2 TO 4 11/05/19 14 73350-NLCP SKIN LESIONS, 2 TO 4 01/30/20 12 34864-FINK SKIN LESIONS, 2 TO 4 06/22/19 16 30140-DEAF SKIN LESIONS, 2 TO 4 12/14/19 16 49939-PCLA SKIN LESIONS, 2 TO 4 04/29/20 16 23007-UANG SKIN LESIONS, 2 TO 4 02/28/20 17 21768-HJZY SKIN LESIONS, 2 TO 4 08/30/19 17 29276-UUHP SKIN LESIONS, 2 TO 4 11/29/19 17 28620-SNQI SKIN LESIONS, 2 TO 4 05/30/19 17 81149-WXEM SKIN LESIONS, 2 TO 4 02/29/20 16 29472-CIJW SKIN LESIONS, 2 TO 4 04/23/20 18 80926-MKUM SKIN LESIONS, 2 TO 4 01/23/20 18 82545-RDMK SKIN LESIONS, 2 TO 4 09/16/19 18 43798-MZDU SKIN LESIONS, 2 TO 4 06/12/19 18 08196-HSXX SKIN LESIONS, 2 TO 4 07/24/19 19 99375-LUZT SKIN LESIONS, 2 TO 4 10/23/19 19 26849-OMML SKIN LESIONS, 2 TO 4 01/22/20 19 88619-EWFO SKIN LESIONS, 2 TO 4 04/29/20 19 04198-XHOQ SKIN LESIONS, 2 TO 4 03/03/20 25 50059-WAZG SKIN LESIONS, 2 TO 4 09/28/19 25 48778- Short Leg Cast 01/21/2019 Next Appt Details Provider Name:Angle Juan bryan, 06/02/2025 11:15:00 AM, [address] [address], [place], [address], Insurance Providers Payer Name Payer Address Payer Phone Subscriber Number Group Number Insured Name Patient Relationship to Insured Coverage Start Date Coverage End Date Medicare National [employer] [address] [place] [address] [id number] Kylee Camara Self - patient is the insured [employer] [address] [place] [address] [phone] [id number] Kylee Camara Self - patient is the insured Medical (General) History Medical History History ICD Code diabetes mellitus mumps measles chicken pox Surgical History Surgery Date(Month/Year) appendectomy 1950 breast surgery 2004 hysterectomy 1971 Hospitalization History Reason Date(Month/Year) fell, fractured clavicle and 2 ribs 01/11 24 [facility] High blood pressure 03/2019 sigmoidoscopy 06/2013
--- OUTSIDE RECORDS SUMMARY | 2025-03-07 16:16 | XMS_ITS ---
Author Name [facility] Organization Unknown Care Team Organization Name Specialty Phone Email Start Date End [facility] 01/11/2025
== END 2025-03-07 13:53 | disposition home or self-care (01) ==
LOC: HO.HSM 13:26
PROVIDERS: PCP Internal Medicine; Referring Provider Internal Medicine; Visit Provider Registered Nurse
DX: G31.84 Mild cognitive impairment of uncertain or unknown etiology (principal)
CPT/HCPCS: 99214

== ENCOUNTER → 2025-03-07 13:25 | Outpatient (BNVA) | payer MEDICARE, SELFPAY | PROVIDERS: PCP Internal Medicine; Referring Provider Internal Medicine; Visit Provider Registered Nurse | DX: G31.84 Mild cognitive impairment of uncertain or unknown etiology (principal) | CPT/HCPCS: 99212 ==